=== PATIENT | female | born 1960 | race Caucasian/White ===

== ENCOUNTER 2018-09-17 13:16 | Emergency (ER) | payer BC ==
[2018-09-17] MEDS ORDERED: Sodium Chloride 0.9% 1,000 ML IV STA ×2 (13:55)
--- NOTE | 2018-09-17 14:11 | ED PDOC ---
HPI: General Adult Time Seen by Provider: 09/17/18 13:28 Chief Complaint (Nursing): Weakness/Neurological Deficit Chief Complaint (Provider): body aches and fever History Per: Patient History/Exam Limitations: no limitations Onset/Duration Of Symptoms: Days (x4) Current Symptoms Are (Timing): Still Present Additional Complaint(s): Alejandra Wagoner is a 58 year old female, with a past medical history of PNA for which she was hospitalized, who presents to the emergency department complaining of body aches, fever, bilateral ear pain and sore throat ongoing for x4 days. P krystin also reports abdominal pain and lower back pain. Patient states fever only occurs at night. She called her PMD who advised her visit an urgent care center for the possibility of having the flu. Patient was seen at [facility] and was given x1 tab of Xofluza but was recommended to come to the ER after patient broke out in a rash immediately after taking medication. Patient states rash is not itchy and located on upper extremities and chest. She is unsure if rash is from medication or if she just didn't notice it previously. She reports having a Measles booster shot in 09/03/18 and has a history of measles in the past. Patient also reports having a bruise in her right leg, she denies injuring her leg and is unsure of cause. She denies any cough, runny nose, chest pain, shortness of breath, nausea, vomit, diarrhea, urinary symptoms or other medical complaints. PMD: In [facility] Past Medical History Reviewed: Historical Data, Nursing Documentation, Vital Signs Vital Signs: Last Vital Signs Temp 100.7 F H 09/17/18 13:17 Pulse 95 H 09/17/18 13:17 Resp 16 09/17/18 13:17 BP 145/91 H 09/17/18 13:17 Pulse Ox 100 09/17/18 13:17 - Medical History PMH: Pneumonia - Surgical History Surgical History: No Surg Hx - Family History Family History: States: Unknown Family Hx - Social History Current smoker - smoking cessation education provided: No Alcohol: Social Drugs: Denies - Home Medications Home Medications: Ambulatory Orders Medication Instructions Recorded Acetaminophen [Tylenol Extra 1,000 mg PO Q6 PRN #100 tablet 09/17/18 Strength] Ketorolac Tromethamine [Toradol] 10 mg PO Q8 PRN #30 tab 09/17/18 - Allergies Allergies/Adverse Reactions: Allergies Allergy/AdvReac Type Severity Reaction Status Date / Time No Known Allergies Allergy Verified 09/17/18 13:17 Review of Systems ROS Statement: Except As Marked, All Systems Reviewed And Found Negative Constitutional: Positive for: Fever, Other (body aches) ENT: Positive for: Ear Pain (bilateral), Throat Pain Cardiovascular: Negative for: Chest Pain Respiratory: Negative for: Cough, Shortness of Breath Gastrointestinal: Positive for: Abdominal Pain. Negative for: Nausea, Vomiting, Diarrhea Genitourinary Female: Negative for: Dysuria, Frequency, Incontinence, Hematuria Musculoskeletal: Positive for: Back Pain (low) Skin: Positive for: Rash (upper extremities and chest) Physical Exam - Reviewed Nursing Documentation Reviewed: Yes Vital Signs Reviewed: Yes - Physical Exam Appears: Positive for: No Acute Distress Head Exam: Positive for: ATRAUMATIC, NORMAL INSPECTION, NORMOCEPHALIC Skin: Positive for: Normal Color, Warm, Dry, Rash (Generalized papular rash. No vesicles, induration or tenderness.) Eye Exam: Positive for: Normal appearance, EOMI, PERRL. Negative for: Conjunctival injection ENT: Positive for: Normal ENT Inspection (No rash in mouth or tongue), Pharynx Is (clear), TM Is/Are (intact) Neck: Positive for: Normal, Painless ROM Cardiovascular/Chest: Positive for: Regular Rate, Rhythm. Negative for: Murmur Respiratory: Positive for: Normal Breath Sounds. Negative for: Respiratory Distress Gastrointestinal/Abdominal: Positive for: Normal Exam, Soft. Negative for: Tenderness Back: Positive for: Normal Inspection. Negative for: L CVA Tenderness, R CVA Tenderness, Vertebral Tenderness Extremity: Positive for: Normal ROM (upper and lower extremities), Other (Old healing ecchymosis to left anterior upper thigh). Negative for: Tenderness, Deformity, Swelling Neurological/Psych: Positive for: Awake, Alert, Normal Tone, Oriented. Negative for: Motor/Sensory Deficits - Laboratory Results Result Diagrams: 09/17/18 14:48 09/17/18 14:48 - ECG O2 Sat by Pulse Oximetry: 100 (RA) Pulse Ox Interpretation: Normal Medical Decision Making Medical Decision Making: Time: 13:28 Initial impression: Initial Plan: --CMP --Urine --CBC w/ differential --PTT --PT --Chest two views (PA/LAT) [RAD] --Measles AB --NaCl 1,000 ml IV 125 ml/hr --Tylenol 325mg tab 650mg PO --Influenza A B --Rapid Strep Group A Antigen --Urinalysis --Reevaluation Scribe Attestation: Documented by Dudley Galvan, acting as a scribe Zan Coates MD Provider Scribe Attestation: All medical record entries made by the Scribe were at my direction and personally dictated by me. I have reviewed the chart and agree that the record accurately reflects my personal performance of the history, physical exam, medical decision making, and the department course for this patient. I have also personally directed, reviewed, and agree with the discharge instructions and d isposition. Disposition - Clinical Impression Clinical Impression: Vaccine reaction, Viral syndrome - Disposition Disposition: Transfer of Care Disposition Time: 15:00 Condition: IMPROVED Additional Instructions: YOUR SYMPTOMS ARE MOST CONSISTENT WITH REACTION TO THE MEASLES VACCINE. IT COULD ALSO BE A VIRAL ILLNESS ON TOP OF THIS. PLEASE REST AND DRINK PLENTY OF HYDRATING FLUIDS. CONTINUE TYLENOL AND/OR TORADOL FOR FEVER AND BODYACHES. BENADRYL FOR ITCHING. FOLLOWUP WITH YOUR DOCTOR IN 1-2 DAYS FOR REEVALUATION YOUR MEDICATIONS HAVE BEEN TRANSMITTED TO [facility] Prescriptions: Acetaminophen [Tylenol Extra Strength] 1,000 mg PO Q6 PRN #100 tablet PRN Reason: FEVER OR PAIN Ketorolac Tromethamine [Toradol] 10 mg PO Q8 PRN #30 tab PRN Reason: PAIN Instructions: Measles, Mumps, and Rubella Virus Vaccine, Viral Exanthem (DC) Forms: [facility] ED School/Work Excuse Patient Signed Over To: Suri Keith
--- NOTE | 2018-09-17 14:31 | RAD ---
Date of service: 09/17/2018 HISTORY: Cough COMPARISON: 07/29/2013 TECHNIQUE: Chest PA and lateral views two-view FINDINGS: LUNGS: No active pulmonary disease. PLEURA: No significant pleural effusion identified. No pneumothorax apparent. CARDIOVASCULAR: No aortic atherosclerotic calcification present. Normal cardiac size. No pulmonary vascular congestion. OSSEOUS STRUCTURES: No significant abnormalities. VISUALIZED UPPER ABDOMEN: Normal. OTHER FINDINGS: None. IMPRESSION: No active disease.
[2018-09-17 15:19] LABS: PROTHROMBIN TIME 11.5 Seconds (9.8-13.1)
[2018-09-17 15:22] LABS: PARTIAL THROMBOPLASTIN TIME 30.1 Seconds (25.6-37.1)
[2018-09-17 15:24] LABS: BASO % 0.8 % (0.0-2.0); EOS % 0.9 % (0.0-4.0); HEMOGLOBIN 13.4 g/dL (12.0-16.0); LYMPH # 0.7 K/uL (1.0-4.3); LYMPH % 22.3 % (20.0-40.0); MEAN CELL VOLUME 73.8 fl (81.0-99.0); MEAN CORPUSCULAR HEMOGLOBIN 23.8 pg (27.0-31.0); MEAN CORPUSCULAR HGB CONC 32.2 g/dL (33.0-37.0); MEAN PLATELET VOLUME 8.6 fl (7.2-11.7); MONO # 0.2 K/uL (0.0-0.8); MONO % 5.9 % (0.0-10.0); NEUT # 2.1 K/uL (1.8-7.0); NEUT % 70.1 % (50.0-75.0); NRBC % 0.1 % (0.0-0.0); RBC 5.65 Mil/uL (3.80-5.20); RED CELL DISTRIBUTION WIDTH 16.8 % (11.5-14.5); WHITE BLOOD COUNT 2.9 K/uL (4.8-10.8)
[2018-09-17 15:27] LABS: ALB/GLOB RATIO 1.3 (1.0-2.1); ALBUMIN 4.1 g/dL (3.5-5.0); ALT/SGPT 210 U/L (9-52); AST/SGOT 198 U/L (14-36); BLOOD UREA NITROGEN 12 mg/dl (7-17); GFR NON-AFRICAN AMERICAN > 60
--- NOTE | 2018-09-17 16:04 | ED PDOC ---
- Laboratory Results Result Diagrams: 09/17/18 14:48 09/17/18 14:48 Lab Results: PT 11.5 Seconds (9.8-13.1) 09/17/18 14:48 INR 1.0 09/17/18 14:48 APTT 30.1 Seconds (25.6-37.1) 09/17/18 14:48 Total Bilirubin 0.2 mg/dl (0.2-1.3) 09/17/18 14:48 AST 198 U/L (14-36) H 09/17/18 14:48 ALT 210 U/L (9-52) H 09/17/18 14:48 Alkaline Phosphatase 86 U/L (38-126) 09/17/18 14:48 Total Protein 7.2 G/DL (6.3-8.2) 09/17/18 14:48 Albumin 4.1 g/dL (3.5-5.0) 09/17/18 14:48 Globulin 3.1 gm/dL (2.2-3.9) 09/17/18 14:48 Albumin/Globulin Ratio 1.3 (1.0-2.1) 09/17/18 14:48 - ECG O2 Sat by Pulse Oximetry: 100 (RA) - Progress ED Course And Treament: 3p Rec'd endorsement from Dr Coates. Pt with fever, myalgias, headache, sore throat and ear pain since Friday. Taking NSAIDs and tylenol since then, also had placed ear drops in ear from previous ear issue. Noticed rash today but not sure when it started. Had measles vaccine 09/03. She recalls having measles as a child, but was told by her PMD that bloodwork demonstrated lack of immunity, prompting need for vaccine. No known sick contacts and only has been in [place] and [facility] areas recently. Reports that her ear pain has occurred in the past. Denies photophobia or neck stiffness, though senses that her neck feels a little swollen. Denies eye redness or discharge, runny nose, or cough. 345p Labs demonstrate leukocytosis and mildly elevated transaminases. Serologies negative. Findings c/w viral illness and/or reaction to measles vaccine. Pt still had headache and body aches. Additional tylenol and toradol ordered as well as mono screen. IVF still running. Disposition Counseled Patient/Family Regarding: Studies Performed, Diagnosis, Need For Followup, Rx Given - Clinical Impression Clinical Impression: Vaccine reaction, Viral syndrome - POA Present On Arrival: None - Disposition Disposition: Routine/Home Disposition Time: 17:35 Condition: IMPROVED Additional Instructions: YOUR SYMPTOMS ARE MOST CONSISTENT WITH REACTION TO THE MEASLES VACCINE. IT COULD ALSO BE A VIRAL ILLNESS ON TOP OF THIS. PLEASE REST AND DRINK PLENTY OF HYDRATING FLUIDS. CONTINUE TYLENOL AND/OR TORADOL FOR FEVER AND BODYACHES. BENADRYL FOR ITCHING. FOLLOWUP WITH YOUR DOCTOR IN 1-2 DAYS FOR REEVALUATION YOUR MEDICATIONS HAVE BEEN TRANSMITTED TO [facility] Prescriptions: Acetaminophen [Tylenol Extra Strength] 1,000 mg PO Q6 PRN #100 tablet PRN Reason: FEVER OR PAIN Ketorolac Tromethamine [Toradol] 10 mg PO Q8 PRN #30 tab PRN Reason: PAIN Instructions: Measles, Mumps, and Rubella Virus Vaccine, Viral Exanthem (DC) Forms: [facility] ED School/Work Excuse
[2018-09-17 16:10] LABS: URINE BILIRUBIN NEGATIVE (NEGATIVE); URINE BLOOD SMALL (NEGATIVE); URINE CLARITY SLIGHTY-CLOUDY (Clear); URINE COLOR YELLOW (YELLOW); URINE GLUCOSE (UA) NEG (NEGATIVE); URINE LEUKOCYTE ESTERASE NEG Leu/uL (Negative); URINE PROTEIN NEGATIVE (NEGATIVE); URINE UROBILINOGEN 0.2-1.0 mg/dL (0.2-1.0)
[2018-09-17 17:50] VITALS: PULSE 78; RESP 20
[2018-09-17 18:34] VITALS: BP 120/80; TEMP 98.5
[2018-09-21 10:16] VITALS: O2SAT 100
== END 2018-09-17 18:34 | disposition home or self-care (01) ==
LOC: H.ER 13:16
DX: T88.1XXA Other complications following immunization, not elsewhere classified, initial encounter (principal); B34.9 Viral infection, unspecified; R50.9 Fever, unspecified
CPT/HCPCS: 71046; 80053; 81003; 83605; 85025; 85610; 85730; 86308; 86765; 87070; 87430; 87804; 96361; 96374; 99285; J1885; J7030